=== PATIENT | female | born 1980 | race Caucasian/White ===

== ENCOUNTER 2019-03-27 08:59 | Emergency (ER) | payer MEDICAID ==
[~2019-03-27] VITALS: Ht 154.9 cm; Wt 54.5 kg
[2019-03-27 09:37] VITALS: BP 94/58
--- NOTE | 2019-03-27 10:04 | NUR ---
MEDICAL RECORDS REQUESTED FROM [facility]
--- NOTE | 2019-03-27 10:39 | NUR ---
relieving RN for break, pt is sleeping on gurney, resp even and unlabored
[2019-03-27 10:59] LABS: CLARITY,URINE CLEAR (Clear); COLOR,URINE YELLOW (Yellow); GLUCOSE, URINE NEGATIVE (Neg); KETONES,URINE NEGATIVE (Neg); LEUKOCYTE ESTERASE ,URINE NEGATIVE (Neg); NITRITES, URINE NEGATIVE (Neg); OCCULT BLOOD,URINE NEGATIVE (Neg); PROTEIN,URINE NEGATIVE (Neg); UROBILINOGEN,URINE 0.2 E.U/dL (0.2-1.0)
[2019-03-27 11:01] LABS: UA COLLECTION TYPE CLN CATCH MIDSTREAM
== END 2019-03-27 11:18 | disposition home or self-care (01) ==
LOC: ER 09:00
DX: R53.1 Weakness (principal); F15.90 Other stimulant use, unspecified, uncomplicated; Z59.0 Homelessness
CPT/HCPCS: 81003; 99283

== ENCOUNTER 2019-07-19 09:05 | Emergency (ER) | payer MEDICAID ==
[~2019-07-19] VITALS: Ht 152.4 cm; Wt 52.3 kg
[2019-07-19 09:07] VITALS: BP 120/78
== END 2019-07-19 10:00 | disposition home or self-care (01) ==
LOC: ER 09:05
DX: R53.1 Weakness (principal); F15.90 Other stimulant use, unspecified, uncomplicated; Z59.0 Homelessness
CPT/HCPCS: 99283